=== PATIENT | female | born 1995 | race Caucasian/White ===

== ENCOUNTER 2019-03-08 04:42 | Emergency (ER) | payer OTHER ==
[~2019-03-08] VITALS: Ht 160 cm; Wt 70.8 kg
[~2019-03-08 04:42] MED LIST: RXCODACESY PO; Vibramycin100 MG PO
[2019-03-08] MEDS ORDERED: FALMINA1 EACH PO (04:59)
[2019-03-08] MEDS ORDERED: BENZ100A PO (05:09)
== END 2019-03-08 05:15 | disposition home or self-care (01) ==
LOC: ER 04:42
DX: J04.0 Acute laryngitis (principal); Z79.899 Other long term (current) drug therapy; F17.200 Nicotine dependence, unspecified, uncomplicated
CPT/HCPCS: 99283

== ENCOUNTER 2020-04-03 17:54 | Emergency (ER) | payer OTHER ==
[~2020-04-03] VITALS: Ht 160 cm; Wt 74.8 kg
[~2020-04-03 17:54] MED LIST changes: +BENZ100A PO; +FALMINA1 EACH PO
== END 2020-04-03 19:58 | disposition home or self-care (01) ==
LOC: ER 17:54
DX: R07.0 Pain in throat (principal); F17.200 Nicotine dependence, unspecified, uncomplicated
CPT/HCPCS: 70360; 99283-25

== ENCOUNTER 2021-04-02 22:31 | Observation (INO) | payer OTHER ==
[~2021-04-02] VITALS: Ht 160 cm; Wt 80.8 kg
[2021-04-02 23:05] LABS: BASOPHILS ABSOLUTE AUTO 0.03 K/mm3 (0.00-0.23); BASOPHILS PERCENT AUTO 0 % (0-2); EOSINOPHILS ABSOLUTE AUTO 0.01 K/mm3 (0.00-0.68); EOSINOPHILS PERCENT AUTO 0 % (0-6); Hematocrit 40.1 % (33.0-51.0); Hemoglobin 13.5 g/dL (11.5-16.0); IMMATURE GRAN ABSOLUTE AUTO 0.02 K/mm3 (0.00-0.10); IMMATURE GRAN PERCENT AUTO 0 % (0-1); LYMPHOCYTES ABSOLUTE AUTO 2.34 K/mm3 (0.84-5.20); LYMPHOCYTES PERCENT AUTO 21 % (21-46); MONOCYTES ABSOLUTE AUTO 0.63 K/mm3 (0.16-1.47); MONOCYTES PERCENT AUTO 6 % (4-13); Mean Corpuscular HGB 29.5 pg (26.0-34.0); Mean Corpuscular HGB Conc 33.7 g/dL (31.5-36.5); Mean Corpuscular Volume 88 fL (80-100); Mean Platelet Volume 8.6 fL (9.1-12.4); NEUTROPHILS ABSOLUTE AUTO 8.29 K/mm3 (1.96-9.15); NEUTROPHILS PERCENT AUTO 73 % (41-73); Platelet Count 286 K/mm3 (150-400); RDW Coefficient Variation 12.7 % (11.7-14.2); RDW Standard Deviation 40.9 fL (35.1-46.3); Red Blood Cell Count 4.58 M/mm3 (3.80-5.20); White Blood Cell Count 11.32 K/mm3 (4.00-11.30)
[2021-04-02 23:24] LABS: Alanine Aminotransfer (ALT/SGP 41 U/L (12-78); Albumin, Blood 4.1 g/dL (3.4-5.0); Albumin/Globulin Ratio 1.1 (0.8-1.8); Alk Phos 108 U/L (50-136); Anion Gap 4 mmol/L (6-16); Aspartate Aminotrans (AST/SGOT 10 U/L (12-37); Bilirubin, Total 0.2 mg/dL (0.1-1.0); Blood Urea Nitrogen 10 mg/dL (8-24); Bun/Creatinine Ratio 15.2 (12.0-20.0); CO2, Blood 29 mmol/L (21-32); Chloride, Blood 107 mmol/L (98-108); Creatinine, Blood 0.66 mg/dL (0.40-1.00); Globulin, Blood 3.9 g/dL (2.2-4.0); Glomerular Filtration Rate >60 (60-); Glucose, Blood 103 mg/dL (70-99); Sodium, Blood 140 mmol/L (136-145)
[2021-04-03 00:28] LABS: Source, Urine Clean Catch
[2021-04-03 00:30] LABS: Bilirubin, Urine Neg (Neg); Blood, Urine Neg (Neg); Glucose Qualitative, Urine Neg (Neg); Ketones, Urine Neg (Neg); Leukocyte Esterase, Urine 1+ (Neg); Nitrite, Urine Neg (Neg); Protein, Urine Neg (Neg); Urobilinogen, Urine NORM (Normal)
[2021-04-03 00:37] LABS: Appearance, Urine Clear (Clear); Color, Urine Yellow (P-Yellow)
[2021-04-03 00:38] LABS: Bacteria Few /hpf; Red Blood Cells, Urine Not Seen /hpf (0-2); Squamous Epithelial Cells Mod /hpf (Few); White Blood Cells, Urine 0-2 /hpf (0-5)
--- NOTE | 2021-04-03 05:39 | NUR ---
SHINGLE BOLT CUTTER SUMMARY PT ARRIVED TO THE UNIT IN A WHEELCHAIR AND WAS ABLE TO TRANSFER HERSELF TO BED. PT REPORTS LITTLE TO NO PAIN IN ABDOMEN WHEN AT REST BUT DOES HAVE 7/10 PAIN WHEN AMBULATING, PT CONTINUES TO REFUSE ANY PAIN MEDICATION. PT HAS HAD NO NAUSEA THIS SHIFT. PT HAS REMAINED AFEBRILE W A PEAK TEMP OF 98.0. PT REPORTED SORE THROAT, COUGH, CONGESTION AND HEADACHE SCATTERED OVER PREVIOUS WEEK, COVID SWAB SENT TO LAB AWAITING RESULTS. O2 SATS >92% ON RM AIR. PT RESTING COMFORTABLY IN BED W CALL LIGHT WITHIN REACH. WILL REPORT TO ONCOMING RN.
[2021-04-03 06:46] LABS: SARS-Cov-2 (COVID-19) PCR, MMC NEGATIVE (NEGATIVE)
--- NOTE | 2021-04-03 13:08 | NUR ---
History, Chart, Medications and Allergies reviewed before start of procedure. Patient confirms NPO status and agrees with scheduled surgery.
--- NOTE | 2021-04-03 13:09 | NUR ---
PT TO OR AT APROX 1305.
--- NOTE | 2021-04-03 18:17 | NUR ---
SHIFT SUMMARY PT POD 0 LAP APPY. LAP SITES X'S 3 C/D/I. PT HAS BEEN NAUSEATED SINCE ARRIVAL TO UNIT WITH ONE EPISODE OF EMESIS. TAKING SMALL SIPS OF CLEAR LIQUIDS AT THIS TIME. PT HAS HAD C/O FEELING LIKE SHE IS UNABLE TO TAKE A DEEP BREATH, EDUCATED ON USE OF IS, PT DEMONSTRATED. A/O. AMBULATING SBA TO RESTROOM. PT HAS HAD NO C/O PAIN POST OP.
--- NOTE | 2021-04-04 06:12 | NUR ---
SHIFT SUMMARY: PT POD#1 FOR LAP APPY. LAP SITES C/D/I. PT REPORTS PASSING SOME FLATUS. TOLERATING A SMALL AMOUNT OF CLEAR LIQUIDS. PT DENIES N/V. PAIN BEING MANAGED WITH TORADOL AND NORCO PER EMAR. PT AMBULATING IN ROOM INDEPENDENTLY. VOIDING WELL. POSSIBLE DISCHARGE TODAY.
[2021-04-04] MEDS ORDERED: HYDR1TAB94 PO (08:56)
[2021-04-04] MEDS ORDERED: MIRALAX17 GM PO (08:56)
== END 2021-04-04 12:08 | disposition home or self-care (01) ==
LOC: ER 22:31 → SURS 22:32 → ER 04-03 03:05 → SURS 04-03 03:30
PROVIDERS: Student in an Organized Health Care Education/Training Program; Surgery; ADMIT Surgery
PROC: 0DTJ4ZZ Resection of Appendix, Percutaneous Endoscopic Approach (ICD-10-PCS; principal; 2021-04-03 12:30)
DX: K35.80 Unspecified acute appendicitis (principal); F17.200 Nicotine dependence, unspecified, uncomplicated; Z20.822 Contact with and (suspected) exposure to COVID-19
CPT/HCPCS: 36415; 74177; 80053; 81001; 81025; 83690; 85025; 88304; 96365; 96374; 96375; 96376; 99285-25; A9270; G0378; J1100; J1170; J1885; J2250; J2405; J2543; J2704; J2765; J3010; J7120; Q9967; U0004

== ENCOUNTER 2022-05-08 18:00 | Emergency (ER) | payer OTHER ==
[~2022-05-08] VITALS: Ht 160 cm; Wt 75.8 kg
[~2022-05-08 18:00] MED LIST changes: +HYDR1TAB94 PO; +MIRALAX17 GM PO
[2022-05-08] MEDS ORDERED: Robaxin750 MG PO (19:58)
== END 2022-05-08 20:24 | disposition home or self-care (01) ==
LOC: ER 18:00
DX: S09.90XA Unspecified injury of head, initial encounter (principal); S16.1XXA Strain of muscle, fascia and tendon at neck level, initial encounter; S00.212A Abrasion of left eyelid and periocular area, initial encounter; F17.200 Nicotine dependence, unspecified, uncomplicated; V43.52XA Car driver injured in collision with other type car in traffic accident, initial encounter
CPT/HCPCS: 70450; 72125; A9270; J1885; J3010

== ENCOUNTER → 2025-05-15 | Outpatient (CLI) | payer OTHER ==
[~2025-05-15] MED LIST changes: +Robaxin750 MG PO
[2025-05-15 13:09] LABS: BASOPHILS ABSOLUTE AUTO 0.04 K/mm3 (0.00-0.23); BASOPHILS PERCENT AUTO 1 % (0-2); EOSINOPHILS ABSOLUTE AUTO 0.16 K/mm3 (0.00-0.68); EOSINOPHILS PERCENT AUTO 3 % (0-6); Hematocrit 40.9 % (33.0-51.0); Hemoglobin 14.2 g/dL (11.5-16.0); IMMATURE GRAN ABSOLUTE AUTO 0.01 K/mm3 (0.00-0.10); IMMATURE GRAN PERCENT AUTO 0 % (0-1); LYMPHOCYTES ABSOLUTE AUTO 1.85 K/mm3 (0.84-5.20); LYMPHOCYTES PERCENT AUTO 29 % (21-46); MONOCYTES ABSOLUTE AUTO 0.24 K/mm3 (0.16-1.47); MONOCYTES PERCENT AUTO 4 % (4-13); Mean Corpuscular HGB Conc 34.7 g/dL (31.5-36.5); Mean Corpuscular Volume 88 fL (80-100); NEUTROPHILS ABSOLUTE AUTO 4.09 K/mm3 (1.96-9.15); NEUTROPHILS PERCENT AUTO 64 % (41-73); NRBC ABSOLUTE 0.00 K/mm3 (0.00-0.02); NRBC Auto 0.0 /100 WBC (0.0-0.2); Platelet Count 287 K/mm3 (150-400); RDW Coefficient Variation 12.6 % (11.7-14.2); RDW Standard Deviation 41.1 fL (35.1-46.3)
[2025-05-15 13:19] LABS: Alanine Aminotransfer (ALT/SGP 50.0 U/L (12-78); Albumin, Blood 4.4 g/dL (3.4-5.0); Albumin/Globulin Ratio 1.3 (0.8-1.8); Anion Gap 10.0 mmol/L (3-11); Aspartate Aminotrans (AST/SGOT 17.0 U/L (12-37); Bilirubin, Total 0.3 mg/dL (0.1-1.0); Blood Urea Nitrogen 9.0 mg/dL (8-24); CO2, Blood 31.0 mmol/L (21-32); Calcium, Blood 10.2 mg/dL (8.5-10.1); Chloride, Blood 101.0 mmol/L (98-108); Creatinine, Blood 0.58 mg/dL (0.40-1.00); Globulin, Blood 3.4 g/dL (2.2-4.0); Glucose, Blood 89.0 mg/dL (70-99); Potassium, Blood 3.5 mmol/L (3.5-5.5); Sodium, Blood 138.0 mmol/L (136-145); Total Protein, Blood 7.8 g/dL (6.4-8.2)
== END ==
LOC: LAB SHORT 13:04 → LAB 13:04
DX: R10.32 Left lower quadrant pain (principal)
CPT/HCPCS: 80053; 85025